=== PATIENT | female | born 1995 | race Caucasian/White ===

== ENCOUNTER 2016-08-15 11:18 | Outpatient (CLI) | payer OTHER | END 2016-08-15 11:19 | disposition home or self-care (01) | DX: E04.1 Nontoxic single thyroid nodule (principal); R59.0 Localized enlarged lymph nodes ==

== ENCOUNTER 2016-08-22 14:00 | Outpatient (CLI) | payer OTHER | END 2016-08-22 14:01 | disposition home or self-care (01) | DX: J03.90 Acute tonsillitis, unspecified (principal) ==

== ENCOUNTER 2017-07-17 15:35 | Outpatient (CLI) | payer BC, OTHER | END 2017-07-17 15:36 | disposition home or self-care (01) | LOC: LAB.R 15:35 | PROVIDERS: ATTEND Physician Assistant Medical | DX: N76.0 Acute vaginitis (principal); R31.9 Hematuria, unspecified; N94.89 Other specified conditions associated with female genital organs and menstrual cycle | CPT/HCPCS: 81599; 87086; 87255 ==

== ENCOUNTER 2017-08-27 23:43 | Outpatient (CLI) | payer BC ==
[2017-08-27 19:47] LABS: H. PYLORIS ANTIGEN STL NEGATIVE (Negative)
== END 2017-08-27 23:44 | disposition home or self-care (01) ==
LOC: LAB.R 23:43
PROVIDERS: ATTEND Physician Assistant Medical
DX: R10.9 Unspecified abdominal pain (principal)
CPT/HCPCS: 87338

== ENCOUNTER 2018-11-06 08:00 | Outpatient (CLI) | payer BC ==
[2018-11-07 12:57] LABS: HIV AG/AB 4TH GEN NON-REACTIVE (NON-REACTIVE)
== END 2018-11-06 08:01 | disposition home or self-care (01) ==
LOC: LAB.WCP 08:00
PROVIDERS: ATTEND Family Medicine
DX: Z11.3 Encounter for screening for infections with a predominantly sexual mode of transmission (principal)
CPT/HCPCS: 36415; 81599; 84702; 86592; 87389

== ENCOUNTER 2020-08-25 17:00 | Outpatient (CLI) | payer OTHER ==
[2020-08-26 23:40] LABS: CHLAMYDIA TRACHOMATIS DNA NEGATIVE (NEGATIVE); NEISSERIA GONORRHOEAE DNA NEGATIVE (NEGATIVE); TRICHOMONAS VAGINALIS DNA NEGATIVE (NEGATIVE)
== END 2020-08-25 23:59 | disposition home or self-care (01) ==
LOC: LAB.R 17:00
PROVIDERS: ATTEND Physician Assistant Medical
DX: Z20.2 Contact with and (suspected) exposure to infections with a predominantly sexual mode of transmission (principal)
CPT/HCPCS: 87491; 87591; 87661

== ENCOUNTER 2021-02-01 07:58 | Outpatient (CLI) | payer OTHER ==
[2021-02-01 22:28] LABS: BACTERIAL VAGINOSIS DNA NEGATIVE (NEGATIVE); CANDIDA GROUP DNA POSITIVE (NEGATIVE); CANDIDA KRUSEI DNA NEGATIVE (NEGATIVE); TRICHOMONAS VAGINALIS DNA NEGATIVE (NEGATIVE)
[2021-02-01 22:29] LABS: CANDIDA GLABRATA DNA NEGATIVE (NEGATIVE)
== END 2021-02-01 23:59 | disposition home or self-care (01) ==
LOC: LAB.N 07:58
PROVIDERS: ATTEND Nurse Practitioner
DX: N89.8 Other specified noninflammatory disorders of vagina (principal)
CPT/HCPCS: 87661; 87801

== ENCOUNTER 2021-08-17 08:00 | Outpatient (CLI) | payer OTHER | END 2021-08-17 23:59 | disposition home or self-care (01) | LOC: LAB.N 08:00 | PROVIDERS: ATTEND Nurse Practitioner | DX: B02.9 Zoster without complications (principal) | CPT/HCPCS: 81599; 87290 ==

== ENCOUNTER 2021-08-25 15:25 | Outpatient (CLI) | payer OTHER ==
[2021-08-25 19:20] LABS: THYROID STIMULATING HORMONE 0.02 uIU/mL (0.34-5.60)
[2021-08-25 19:53] LABS: FREE T4 (FREE THYROXINE) 1.6 ng/dL (0.58-1.64)
[2021-08-27 11:51] LABS: HSV 1 IGG TYPE SPECIFIC AB <0.90 index; HSV 2 IGG TYPE SPECIFIC AB >23.00 index
[2021-08-28 22:01] LABS: VARICELLA ZOSTER VIRUS IGM 0.73
== END 2021-08-25 15:26 | disposition home or self-care (01) ==
LOC: LAB.N 15:25
PROVIDERS: ATTEND Physician Assistant Medical
DX: C73 Malignant neoplasm of thyroid gland (principal); A60.00 Herpesviral infection of urogenital system, unspecified
CPT/HCPCS: 36415; 81599; 84439; 84443; 86695; 86696; 86787

== ENCOUNTER 2022-09-06 07:54 | Outpatient (CLI) | payer MEDICAID ==
--- NOTE | 2022-09-06 09:26 | CT Report ---
PROCEDURE: SINUS SCREENING WO INDICATIONS: HEADACHE TECHNIQUE: Noncontrast 3.0 mm axial images acquired from the frontal sinuses to the mid-sella, with coronal and sagittal reformats. For radiation dose reduction, the following was used: automated exposure control , adjustment of mA and/or kV according to patient size. COMPARISON: None. FINDINGS: Image quality: Excellent. Maxillary Sinuses: Circumferential mucosal thickening of both maxillary sinuses is seen with mucosal thickening measuring up to 8 mm. No chronic bony remodeling or destruction. Ethmoid Air Cells: Mucosal thickening of the ethmoid air cells. No chronic bony remodeling or destru ction. Sphenoid Sinuses: Mild mucosal thickening of the sphenoid sinuses. Frontal Sinuses: Mucosal thickening of the frontal sinuses. Ostiomeatal Complexes: The ostiomeatal complexes are occluded. No Shilpi cells. Miscellaneous: Visualized intra-orbital contents are normal. No lorenzo bullosa. The nasal septum i s mildly deviated to the right. IMPRESSION: 1. Pansinusitis. 2. Occlusion of the ostiomeatal complexes. Reviewed by: Doron Delaney on 09/06/2022 9:25 AM PDT Approved by: Doron Delaney on 09/06/2022 9:25 AM PDT Station ID: [id number]
== END 2022-09-06 07:55 | disposition home or self-care (01) ==
LOC: DI 07:54
PROVIDERS: ATTEND Physician Assistant Medical
DX: R51.9 Headache, unspecified (principal); J32.4 Chronic pansinusitis; J34.89 Other specified disorders of nose and nasal sinuses

== ENCOUNTER 2022-12-05 09:31 | Outpatient (CLI) | payer MEDICAID ==
--- NOTE | 2022-12-05 19:12 | CT Report ---
PROCEDURE: SINUS SCREENING WO INDICATIONS: CHRONIC PANSINUSITIS TECHNIQUE: Noncontrast 3.0 mm axial images acquired from the frontal sinuses to the mid-sella, with coronal and sagittal reformats. For radiation dose reduction, the following was used: automated exposure control , adjustment of mA and/or kV according to patient size. COMPARISON: 09/06/2022 FINDINGS: Image quality: Excellent. Maxillary Sinuses: Moderate mucosal thickening can be seen within the maxillary sinuses, left worse t guzman right. There is demineralization of the medial porter of the maxillary sinuses. Ethmoid Air Cells: There is moderate mucosal thickening seen within the ethmoid air cells, right wor se than left. There is mineralization seen of the ethmoid air cell septations. Sphenoid Sinuses: Mild mucosal thickening can be seen within the anterior right sphenoid sinuses. No definite bony remodeling or destruction can be seen. Frontal Sinuses: There is moderate mucosal thickening seen within the inferomedial right frontal sin us. Minimal mucosal thickening can be seen on the left. No definite bony remodeling or destruction ca n be seen. Ostiomeatal Complexes: The ostiomeatal complexes are nearly completely opacified by soft tissue. The y are demineralized. Miscellaneous: Visualized intra-orbital contents are normal. Bilateral lorenzo bullosa can be seen. There is opacification of the right-sided conchal bullosa. Mild to moderate rightward nasal septal de viation can be seen. IMPRESSION: Multifocal paranasal sinus disease can be seen, which is overall slightly worse than on the 09/06/2022 examination. Areas of bony demineralization are seen, which are consistent with chronic sinusitis. The ostiomeatal complexes are nearly completely opacified by soft tissue and are demineralized. Reviewed by: Tu Chambers MD on 12/05/2022 6:10 PM CAL Approved by: Tu Chambers MD on 12/05/2022 6:10 PM AKDT Station ID: [id number]
== END 2022-12-05 09:32 | disposition home or self-care (01) ==
LOC: DI 09:31
PROVIDERS: ATTEND Physician Assistant
DX: J32.4 Chronic pansinusitis (principal)

== ENCOUNTER 2023-01-26 08:00 | Outpatient (CLI) | payer MEDICAID ==
[2023-01-26 21:40] LABS: CHLAMYDIA TRACHOMATIS DNA NEGATIVE (NEGATIVE); NEISSERIA GONORRHOEAE DNA NEGATIVE (NEGATIVE); TRICHOMONAS VAGINALIS DNA NEGATIVE (NEGATIVE)
== END 2023-01-26 23:59 | disposition home or self-care (01) ==
LOC: LAB.WC 08:00
PROVIDERS: ATTEND Nurse Practitioner
DX: Z20.2 Contact with and (suspected) exposure to infections with a predominantly sexual mode of transmission (principal)
CPT/HCPCS: 87491; 87591; 87661